=== PATIENT | female | born 1960 | race Two or more races ===

== ENCOUNTER 2017-10-29 20:43 | Emergency (ER) | payer BC, OTHER ==
[~2017-10-29] VITALS: Ht 162.6 cm; Wt 60.8 kg
[2017-10-29 21:00] VITALS: BP 104/76
--- NOTE | 2017-10-29 21:13 | Emergency Room Report ---
History of Present Illness General Chief Complaint: Laceration Source: Patient Present Illness HPI Is a 57-year-old female who is right-hand dominant. She presents with laceration to the left ring finger. She was cutting palafox pepper and actually cut her finger. No active bleeding now. Occurred just prior to arrival. Some numbness to the tip of the finger. No other complaint. No other injury. Allergies: Coded Allergies: No Known Allergies (Unverified , 10/29/17) Patient History Past Medical History: see triage record, old chart reviewed Past Surgical History: none Pertinent Family History: none Social History: Denies: smoking Last Menstrual Period: NA Now: No Immunizations: UTD Reviewed Nursing Documentation: PMH: Agreed, PSxH: Agreed Review of Systems Eye: Denies: eye pain, blurred vision ENT: Denies: ear pain, nose congestion, throat swelling Respiratory: Denies: cough, shortness of breath Cardiovascular: Denies: chest pain, palpitations Gastrointestinal: Denies: abdominal pain, diarrhea, nausea, vomiting Musculoskeletal: Denies: back pain, joint pain Skin: Denies: rash Neurological: Denies: headache, numbness Endocrine: Denies: increased thirst, increased urine Hematologic/Lymphatic: Denies: easy bruising All Other Systems: negative except mentioned in HPI Physical Exam Vital Signs Date Time Temp Pulse Resp B/P (MAP) Pulse Ox O2 Delivery O2 Flow Rate FiO2 10/29/17 20:47 98.1 73 18 104/76 99 Room Air 98.1 vitals normal Sp02 EP Interpretation: reviewed, normal General Appearance: well appearing, no apparent distress, alert Head: normocephalic, atraumatic Eyes: bilateral eye PERRL, bilateral eye EOMI ENT: hearing grossly normal, normal pharynx Neck: full range of motion, supple, no meningismus Respiratory: chest non-tender, lungs clear, normal breath sounds Cardiovascular #1: regular rate, rhythm, no murmur Gastrointestinal: normal bowel sounds, non tender, no mass, no organomegaly, no bruit, non-distended Musculoskeletal: back normal, gait/station normal, normal range of motion, other - Left Ring finger: There is a 1 cm laceration to the tip involving the nail. No active bleeding. Full range of motion of the MCP, PIP, and DIP joint. Decreased sensation to the tip. Psychiatric: mood/affect normal Skin: warm/dry Procedures Laceration/Wound Repair Laceration/Wound Repair : Consent: Verbal Wound Location: upper extremity Wound's Depth, Shape: irregular, contused tissue Wound Length (cm): 1 Wound Explored: clean Irrigated w/ Saline (ccs): 1000 Betadine Prep?: Yes Anesthesia: 1% Lidocaine Volume Anesthetic (ccs): 5 Wound Repaired With: sutures Suture Size/Type: 4:0, proline Number of Sutures: 3 Splint Applied?: Yes Type of Splint Applied: metal finger splint Patient Tolerated: Well Complications: None Progress Remove her rings on her ring finger. Area clean and digital block with 1% lidocaine without epinephrine. I placed 3 interrupted suture. Tube him went through the nail to hold into place. Patient tolerated procedure without a problem. Afterward a finger splint was done. Medical Decision Making Diagnostic Impression: Primary Impression: Finger laceration Qualified Codes: S61.315A - Laceration without foreign body of left ring finger with damage to nail, initial encounter Additional Impression: Nailbed laceration, finger Qualified Codes: S61.319A - Laceration without foreign body of unspecified finger with damage to nail, initial encounter ER Course Patient with a finger laceration. No foreign body. No tendon laceration. We' ll discharge home. Last Vital Signs Date Time Temp Pulse Resp B/P (MAP) Pulse Ox O2 Delivery O2 Flow Rate FiO2 10/29/17 20:47 98.1 73 18 104/76 99 Room Air 98.1 Status: improved Disposition: HOME, SELF-CARE Condition: Stable Scripts Ibuprofen* (MOTRIN*) 600 Mg Tablet 600 MG ORAL THREE TIMES A DAY, #30 TAB 0 Refills Prov: STALIN MILLER M.D. 10/29/17 Cephalexin* (KEFLEX*) 500 Mg Capsule 500 MG ORAL TID, #21 CAP 0 Refills Prov: STALIN MILLER M.D. 10/29/17 Patient Instructions: Laceration Care, Adult Additional Instructions: Keep wound clean. Follow-up with her doctor in 7-10 days for suture removal. Return for evidence of infection. STALIN MILLER M.D. Oct 29, 2017 21:13
[2017-10-29] MEDS ORDERED: KEFLEX500 MG ORAL (21:52)
[2017-10-29] MEDS ORDERED: IBUPROFEN600 MG ORAL (21:52)
[2017-10-29 22:02] VITALS: BP 104/76
== END 2017-10-29 22:02 | disposition home or self-care (01) ==
LOC: EMR 21:30
DX: S61.315A Laceration without foreign body of left ring finger with damage to nail, initial encounter (principal); W26.0XXA Contact with knife, initial encounter; Y92.9 Unspecified place or not applicable
CPT/HCPCS: 99284

== ENCOUNTER 2020-05-04 12:40 | Emergency (ER) | payer BC, OTHER ==
[~2020-05-04] VITALS: Ht 162.6 cm; Wt 63.0 kg
[~2020-05-04 12:40] MED LIST: IBUPROFEN600 MG ORAL; KEFLEX500 MG ORAL
[2020-05-04 12:51] VITALS: BP 114/79
--- NOTE | 2020-05-04 13:08 | Emergency Room Report ---
History of Present Illness General Chief Complaint: Abdominal Pain Source: Patient Present Illness HPI Patient presents after accidentally ingesting 1 gulp of Awesome rug cleaner hand. When she realized what she had done she became extremely anxious. The patient denies any pain but feels that strange feeling in her stomach. She denies any nausea or vomiting. A glass of the rug cleaner hand was next to a coffee cup and she was not looking when she took a drink. This happened just prior to coming to the emergency department. Patient denies exposure to COVID-19 positive contacts. No fevers, chills, sore throat, chest pain, palpitations, nausea, vomiting, diarrhea, dysuria, shortness of breath, joint pain, rashes, depression, visual changes, dizziness, headache. Patient has a history of rheumatoid arthritis, osteoarthritis and fibromyalgia. Allergies: Coded Allergies: No Known Allergies (Unverified , 10/29/17) COVID-19 Screening Contact w/high risk pt: No Experienced COVID-19 symptoms?: No COVID-19 Testing performed [employer]: No Patient History Past Medical History: see triage record Social History: Denies: smoking, alcohol use, drug use Social History Narrative Remodeling a house Now: No Reviewed Nursing Documentation: PMH: Agreed; PSxH: Agreed Nursing Documentation-PMH Past Medical History: No History, Except For Hx Gastrointestinal Problems: Yes - gastric bypass in 2014 Review of Systems All Other Systems: negative except mentioned in HPI Physical Exam Vital Signs Date Time Temp Pulse Resp B/P (MAP) Pulse Ox O2 Delivery O2 Flow Rate FiO2 05/04/20 12:45 98.2 91 16 114/79 (91) 98 Room Air Sp02 EP Interpretation: reviewed, normal General Appearance: well appearing, no apparent distress, GCS 15 Head: normocephalic Eyes: bilateral eye normal inspection, bilateral eye PERRL, bilateral eye EOMI ENT: moist mucus membranes Neck: supple Respiratory: lungs clear, normal breath sounds Cardiovascular #1: regular rate, rhythm Cardiovascular #2: 2+ radial (R) Gastrointestinal: normal inspection, normal bowel sounds, non tender, no mass, non-distended Musculoskeletal: back normal, normal range of motion, gait/station normal Neurologic: alert, oriented x3, grossly normal Psychiatric: anxious Skin: no rash, warm/dry Medical Decision Making Diagnostic Impression: Primary Impression: Abdominal discomfort Additional Impression: Bleach ingestion Qualified Codes: T54.91XA - Toxic effect of unspecified corrosive substance, accidental (unintentional), initial encounter ER Course Patient presents after accidental ingestion of Awesome rug cleaner hand. Poison control was contacted. The recommendation was to observe the patient. No other treatment indicated unless further symptoms. Because of the strange feeling in her chest an EKG was obtained. No laboratory or imaging indicated. EKG normal. Patient given a dose of Pepcid and Mylanta. Patient stable through observation. Patient reassured. Patient stable for outpatient observation and treatment. Laboratory Tests Test 05/04/20 13:07 Urine Color Pale yellow Urine Appearance Clear Urine pH 5 (4.5-8.0) Urine Specific [place] 1.005 (1.005-1.035) Urine Protein Negative (NEGATIVE) Urine Glucose (UA) Negative (NEGATIVE) Urine Ketones Negative (NEGATIVE) Urine Blood Negative (NEGATIVE) Urine Nitrite Negative (NEGATIVE) Urine Bilirubin Negative (NEGATIVE) Urine Urobilinogen Normal MG/DL (0.0-1.0) Urine Leukocyte Esterase Negative (NEGATIVE) EKG Diagnostic Results Rate: normal Rhythm: NSR ST Segments: no acute changes Rhythm Strip Diag. Results EP Interpretation: yes Rhythm: NSR, no PVC's, no ectopy Last Vital Signs Date Time Temp Pulse Resp B/P (MAP) Pulse Ox O2 Delivery O2 Flow Rate FiO2 05/04/20 14:49 98.0 80 16 120/80 98 Room Air Status: improved Disposition: HOME, SELF-CARE Condition: Improved Referrals: [facility]ENREFERR[facility] (PCP) Kendall Baldwin MD May 04, 2020 13:08
[2020-05-04 13:25] LABS: APPEARANCE,URINE CLEAR; BILIRUBIN, URINE NEGATIVE (NEGATIVE); COLOR,URINE PALE YELLOW; GLUCOSE, URINE (UA) NEGATIVE (NEGATIVE); KETONES,URINE NEGATIVE (NEGATIVE); LEUKOCYTE ESTERASE ,URINE NEGATIVE (NEGATIVE); NITRITE,URINE NEGATIVE (NEGATIVE); PH,URINE 5 (4.5-8.0); PROTEIN,URINE NEGATIVE (NEGATIVE); UROBILINOGEN,URINE NORMAL MG/DL (0.0-1.0)
[2020-05-04] MEDS ORDERED: Mylanta II UD 30ml ORAL ONE (13:45)
[2020-05-04 14:49] VITALS: BP 120/80
== END 2020-05-04 14:49 | disposition home or self-care (01) ==
LOC: EMR 13:03
DX: T54.91XA Toxic effect of unspecified corrosive substance, accidental (unintentional), initial encounter (principal); R10.9 Unspecified abdominal pain; Y92.019 Unspecified place in single-family (private) house as the place of occurrence of the external cause; Z98.84 Bariatric surgery status
CPT/HCPCS: 81003; 93005; 99283